=== PATIENT | male | born 1930 ===

== ENCOUNTER 2017-10-05 12:03 | Day surgery (SDC) | payer MEDICARE, MEDICAID ==
[2017-08-29 10:18] VITALS: BMI 26.9
[2017-10-05 12:49] LABS: BASO # 0.02 K/mm3 (0.0-2.0); BASO % 0.3 % (0.0-3.0); EOS # 0.3 (0.0-0.7); EOS % 4.7 % (1.5-5.0); GRAN # 3.86 (1.4-6.5); GRAN % 64.8 % (50.0-68.0); HEMOGLOBIN 15.2 g/dL (14.0-18.0); LYMPH # 1.3 (1.2-3.4); LYMPH % 21.3 % (22.0-35.0); MEAN CELL VOLUME 92.8 fl (80.0-105.0); MEAN CORPUSCULAR HEMOGLOBIN 32.1 pg (25.0-35.0); MEAN CORPUSCULAR HGB CONC 34.5 g/dl (31.0-37.0); MEAN PLATELET VOLUME 9.3 fl (7.0-11.0); MONO # 0.5 (0.1-0.6); MONO % 8.9 % (1.0-6.0); RBC 4.74 10^6/uL (3.5-6.1); RED CELL DISTRIBUTION WIDTH 13.2 % (11.5-14.5)
[2017-10-05 12:57] LABS: BLOOD UREA NITROGEN 21 mg/dL (7-21); CALCIUM 9.7 mg/dL (8.4-10.5); GFR AFRICAN-AMERICAN > 60; GFR NON-AFRICAN AMERICAN > 60; HDL CHOLESTEROL 43 mg/dL (29-60)
[2017-10-05 13:09] LABS: INR 1.09 (0.93-1.08); PARTIAL THROMBOPLASTIN TIME 28.3 Seconds (25.1-36.5); PROTHROMBIN TIME 12.5 SECONDS (9.4-12.5)
[2017-10-05 13:10] LABS: LDL CHOLESTEROL 76 mg/dL (0-129)
[2017-10-05] MEDS ORDERED: Lidocaine 2% Inj (20ml) ONE (14:56)
[2017-10-05] MEDS ORDERED: Midazolam 2 MG/2 ML VIAL ONE ×2 (14:57→15:46)
[2017-10-05] MEDS ORDERED: Nitroglycerin 50mg in D5W 0 MG/0 ML BOTTLE IV ONE (14:58)
[2017-10-05] MEDS ORDERED: Iodixanol 320 MG/ML 200 ML BOTTLE IV ONE (14:58)
[2017-10-05] MEDS ORDERED: HEPARIN SODIUM/NS 2,000 ML IV ONE (14:58)
[2017-10-05] MEDS ORDERED: Adenosine 90 mg/30mL IV ONE (16:14)
[2017-10-05] MEDS ORDERED: Sodium Chloride 0.9% 1,000 ML IV SCH (17:00)
[2017-10-05 17:58] LABS: BLOOD UREA NITROGEN 19 mg/dL (7-21); GFR AFRICAN-AMERICAN > 60; GFR NON-AFRICAN AMERICAN > 60
[2017-10-05 18:10] LABS: TROPONIN I 0.02 ng/mL
[2017-10-05 18:15] VITALS: O2SAT 95
[2017-10-05 23:22] VITALS: BP 126/67; PULSE 58; RESP 62; TEMP 98
--- NOTE | 2017-10-06 02:14 | CARDCATH ---
PROCEDURE DATE: 10/05/2017 INDICATIONS: Mr. Fuentes is an 86-year-old male with a history of CAD CABG, had a cardiac cath back in August at [facility] showing moderate diffuse graft disease to the RCA with patent grafts to the OM, diagonal, and patent BAILEY to LAD. He was complaining of symptoms of dyspnea on exertion and therefore was brought to the lab for further evaluation and treatment. PROCEDURE PERFORMED: Complete heart catheterization with selective left and right coronary angiogram, selective BAILEY to LAD, graft to OM diagonal and RCA angiogram. FFR of the graft to RCA. Right heart catheterization with hemodynamics and saturations. RIGHT HEART CATHETERIZATION FINDINGS: Cardiac output using Thermodilution method was 3.3 L. Cardiac index of 1.74 L per minute. Mean RA pressures were 15, RV pressures 35/3 with EDP of 10. PA pressures 29/7 with the mean of 17 and pulmonary capillary wedge pressure was 16. LEFT HEART CATHETERIZATION FINDINGS: BAILEY to LAD patent, graft to diagonal and graft and OM patent, graft to RCA moderate diffuse proximal lesion. FFR of proximal RCA 0.83, physiologically nonsignificant. EF normal. Cardiac output low. IMPRESSION: Patent grafts, moderate right coronary artery disease, physiologically nonsignificant, with FFR of 0.83. Right heart catheterization findings suggestive of low cardiac output with normal ejection fraction and preserved ejection fraction, diastolic heart failure. RECOMMENDATIONS: Continue aggressive medical management and risk factor modification, diuretic therapy with salt restriction for diastolic heart failure. Kevin Mills MD
--- NOTE | 2017-10-06 11:28 | CARD ---
APPROVED REPORT EKG Measurement Heart [id number] <Conclusion> Electronic ventricular pacemaker: 100% VMark Louise, Vivienne Chaudhary.
== END 2017-10-05 23:17 | disposition home or self-care (01) ==
LOC: CATH 12:03 → 2RSO 17:05 → CATH 23:17
PROVIDERS: ATTEND Internal Medicine Interventional Cardiology
DX: I25.10 Atherosclerotic heart disease of native coronary artery without angina pectoris (principal); Z95.1 Presence of aortocoronary bypass graft; I11.0 Hypertensive heart disease with heart failure; I50.30 Unspecified diastolic (congestive) heart failure; E78.5 Hyperlipidemia, unspecified; I83.90 Asymptomatic varicose veins of unspecified lower extremity; I47.1 Supraventricular tachycardia; M19.90 Unspecified osteoarthritis, unspecified site; E04.9 Nontoxic goiter, unspecified; Z95.0 Presence of cardiac pacemaker; Z88.2 Allergy status to sulfonamides; Z80.1 Family history of malignant neoplasm of trachea, bronchus and lung; Z82.49 Family history of ischemic heart disease and other diseases of the circulatory system
CPT/HCPCS: 36415; 80048; 80061; 82550; 83615; 84484; 85025; 85610; 85730; 86850; 86900; 93005; 93459; 93571; 99152; 99153; C1769 ×3; C1887; C1894; C2629; J0153; J1644 ×2; J2250; J3010; J7030; J7040

== ENCOUNTER 2018-10-25 19:40 | Outpatient (CLI) | payer MEDICARE, MEDICAID | END 2018-10-25 19:41 | disposition home or self-care (01) | LOC: CARDIO 19:40 ==